=== PATIENT | male | born 1955 | race Caucasian/White ===

== ENCOUNTER 2017-07-07 10:40 | Day surgery (SDC) | payer OTHER ==
[~2017-07-07] VITALS: Ht 180.3 cm; Wt 113.4 kg
[~2017-07-07 10:40] MED LIST: CLARITIN,ALAVAR10 MG PO; KLONOPIN0.5 M1 PO; LEXAPRO10 MG PO; LEXAPRO20 MG PO; MELATONIN5 M1 PO; MOBIC7.5 MG PO; VITAMIN D31000 UNIT PO; ZANAFLEX2 M1 PO; ZESTRIL30 MG PO
== END 2017-07-07 13:24 | disposition home or self-care (01) ==
LOC: PAIN 10:40
DX: M47.812 Spondylosis without myelopathy or radiculopathy, cervical region (principal); M54.2 Cervicalgia; G89.29 Other chronic pain; M19.019 Primary osteoarthritis, unspecified shoulder; M79.1 Myalgia; F41.8 Other specified anxiety disorders
CPT/HCPCS: J1030; J2250; J3010; S0020

== ENCOUNTER 2017-08-27 07:50 | Day surgery (SDC) | payer OTHER ==
[~2017-08-27] VITALS: Ht 180.3 cm; Wt 113.4 kg
== END 2017-08-27 09:35 | disposition home or self-care (01) ==
LOC: PAIN 07:50 → SDC 08:30 → PAIN 09:35
DX: M47.812 Spondylosis without myelopathy or radiculopathy, cervical region (principal); M54.2 Cervicalgia; G89.29 Other chronic pain; M79.1 Myalgia; I10 Essential (primary) hypertension; M25.519 Pain in unspecified shoulder; F43.10 Post-traumatic stress disorder, unspecified
CPT/HCPCS: J1030; J2250; J3010; S0020